=== PATIENT | female | born 1960 | race Caucasian/White ===

== ENCOUNTER 2016-08-25 05:20 | Inpatient (IN) | payer BC ==
[~2016-08-25] VITALS: Ht 167.6 cm; Wt 74.1 kg
[2016-08-25] VITALS (10 sets, daily range): BP systolic 114–148; BP diastolic 57–73; Ht 167.6 cm; Wt 74.1 kg
--- NOTE | 2016-08-25 07:24 | HP ---
PATIENT: EDEN CASTANON MEDICAL RECORD: [id number] ACCOUNT: [id number] LOCATION[place] [place] 58 ADMISSION DATE: 08/25/16 HISTORY AND PHYSICAL EXAMINATION HISTORY OF PRESENT ILLNESS: This patient is a 56-year-old white female with postmenopausal bleeding, pelvic and perineal pain, referred by Dr. Gilliland. She has undergone endometrial biopsy and Pap smears, which were normal. She had an ultrasound, which measured the uterus at 9.75 cm in length with myomas present. PAST MEDICAL HISTORY: Denies heart disease, diabetes or hypertension, has experienced postmenopausal bleeding and bothersome uterine prolapse. FAMILY HISTORY: Noncontributory. PREVIOUS SURGERIES: None. CURRENT MEDICATIONS: Include Nature-Thyroid, hydrochlorothiazide, progesterone, vitamin B12, biotin, omega-3 fish oil concentrate, probiotic, iodine, tramadol, cyclobenzaprine. HABITS: Smoker for 32 years. Ethanol, none. PHYSICAL EXAMINATION: VITAL SIGNS: Weight is 165, blood pressure 120/70. HEENT: Unremarkable. LUNGS: Clear. HEART: Regular rate and rhythm. ABDOMEN: Soft and nontender. PELVIC: Revealed a stage III pelvic prolapse, cystocele, rectocele and enlarged 10-week size uterus with myomas, third-degree prolapse. ADNEXA: No masses are appreciated. RECTAL: Confirms the above. EXTREMITIES: No cyanosis, clubbing or edema. NEUROLOGIC: Grossly intact. IMPRESSION: Uterine prolapse, cystocele, rectocele. Patient desires hysterectomy. PLAN: A laparoscopic evaluation and a vaginal hysterectomy with repairs and bilateral salpingo-oophorectomy. I have discussed the above planned procedure with the patient and answered all her questions. Discussed potential complications including anesthesia, infection, bleeding, injury to other organs, requiring second surgery for correction and she agrees. TRANSINT:[id number] Voice Confirmation ID: [id number] DOCUMENT ID: [id number] HISTORY AND PHYSICAL [id number] AMADEOEDEN CASTREJON KATHIE HANNA MD at 0724 CC: [id number] DICTATION DATE: 08/24/16 1315 ELECTROMECHANIC: 08/24/16 1442 [place] [address]
[2016-08-25 07:29] LABS: HCG SERUM NEGATIVE (NEGATIVE)
[2016-08-25 07:30] LABS: BASOPHILS 0.3 % (0.0-2.0); EOSINOPHILS 0.7 % (0-7); HEMATOCRIT 48.8 % (36.0-48.0); HEMOGLOBIN 16.8 g/dL (12-16); IMMATURE GRANULOCYTES 0.2 % (0-5); LYMPHOCYTES 31.4 % (15-50); MCH 29.6 pg (26.0-34.0); MCHC 34.4 g/dL (31.0-37.0); MCV 85.9 fL (80.0-100.0); MEAN PLATELET VOLUME 11.7 fL (7.4-10.4); MONOCYTES 9.2 % (2-11); NEUTROPHILS 58.2 % (40-80); PLATELET COUNT 204 10x3/uL (130-400); RBC 5.68 10x6/uL (4.00-5.40); RDW 13.3 % (11.5-14.5); WBC 6.1 10x3/uL (4.8-10.8)
[2016-08-25 07:32] LABS: CALCIUM 9.1 mg/dL (8.5-10.1); CARBON DIOXIDE 26.6 mmol/L (21.0-32.0)
[2016-08-25 07:48] LABS: ANION GAP 14.4 mmol/L (8-16)
[2016-08-25] MEDS ORDERED: HYDROCHLOROTHIA50 MG PO (07:54)
[2016-08-25] MEDS ORDERED: NATURE-THROID32.4 MG PO (07:54)
--- NOTE | 2016-08-25 12:13 | NUR ---
VASOPRESSION 20 UNITS IN 1000L NORMAL SALINE TO FIELD AVC CREAM TO VAGINA
--- NOTE | 2016-08-25 12:45 | NUR ---
PT IS BROUGHT BACK TO ROOM, POST EGD. STAFF STATES HE THINKS IT MAY BE GASTROPARESIS.
--- NOTE | 2016-08-25 13:15 | NUR ---
PT REQUESTED SOMETHING FOR PAIN. STATES HER PAIN IS ABOUT A 7-8.
--- NOTE | 2016-08-25 13:25 | NUR ---
X-RAY IS HERE TO DO A KUB OF HER ABDOMEN.
--- NOTE | 2016-08-25 14:57 | NUR ---
ANATHESIA NOTIFIED OF PT'S PAIN. ORDERS REC'D TO TRANSFERRED TO ROOM.
--- NOTE | 2016-08-25 15:37 | NUR ---
PT WAS RECEIVED FROM RECOVERY. PT IS AWAKE AND ALERT. LUNGS- CLEAR. HEART- RRR. ABD- SOFT, WITH TENDERNESS. WITH 3 LAP INCISIONS NOTED. ONE AT UMBILICUS COVERED WITH GAUZE AND 2 BELOW WITH BANDAIDS. CLEAN, DRY AND INTACT. ALVA CATH INTACT WITH GREEN URINE NOTED. 100 CC NOTED IN BAG. IV INTACT R HAND. PATENT WITH LR INFUSING AT 125 CC/HR. SCD'S INTACT. HER PAIN IS A 4/10. BED IS LOW, SIDE RAILS UP X 2 AND CALL LIGHT IN REACH.
--- NOTE | 2016-08-25 16:30 | NUR ---
PT IS RESTING. OFFERS NO COMPLAINTS. PAIN IS ABOUT A 3. 3 LAP ICISIONS CLEAN AND DRY. IV INTACT R FOREARM. PATENT. ALVA INTACT WITH 100 CC GREEN URINE NOTED. SCD'S INTACT.
--- NOTE | 2016-08-25 17:46 | NUR ---
PT IS RESTING . STATES PAIN IS A 4-5. LOOKED ONE MAR FOR PAIN MED. ONLY TORADOL ORDERED. CALLED DR REAL SHE ORDERED DEMEROL FLAME HARDENING MACHINE SETTER 10 MG Q 10 WITH 200 MG LOCKOUT. URINE OUTPUT 200 CC AND INPUT 243 IV FLUIDS. BED IS LOW. SIDE RAILS UP X 2 AND CALL LIGHT IN REACH. IV PATENT. SCD'S INTACT.
--- NOTE | 2016-08-25 18:25 | NUR ---
DEMEROL SPECIAL PROJECTS MANAGER INFUSING. IV PATENT R FOREARM. ALVA INTACT. DRESSINGS OVER LAP INCISIONS CLEAN AND DRY. SCD'S INTACT. BED IS LOW. SIDE RAILS UP X 2 AND CALL LIGHT IN REACH.
--- NOTE | 2016-08-25 19:38 | NUR ---
PM ROUNDS MADE, PT WATCHING TV, NEW BAG OF D5LR HUNG VIA PUMP INFUSING AT 125 ML/HR, SEE EMAR, INFORMED PT THAT I WILL BE BACK SHORTLY TO DO ASSESSMENT, PT VERBALIZES UNDERSTANDING, FRESH ICE PACK TO ABD AND H20 SERVED, PT DENIES FURTHER NEEDS
--- NOTE | 2016-08-25 20:48 | NUR ---
ADMITTING ASSESSMENT STARTED PER FLOW SHEET
--- NOTE | 2016-08-25 20:49 | NUR ---
ADM TORADOL SIVP AND PEPCID PO PER MD ORDERS, SEE EMAR
--- NOTE | 2016-08-25 20:59 | NUR ---
ADM TORADOL SIVP AND PEPCID PO PER MD ORDERS, SEE EMAR
--- NOTE | 2016-08-25 21:10 | NUR ---
ADMITTING ASSESSMENT COMPLETED, POC DISCUSSED WITH PT, PT VERBALIZES UNDERSTANDING, DENIES NEEDS AT THIS TIME
--- NOTE | 2016-08-25 22:15 | NUR ---
PT RESTING WITH EYES CLOSED, RESP QUIET, NO DISTRESS NOTED, LEFT UNDISTURBED AT THIS TIME
[2016-08-26] VITALS: BP 103/54
--- NOTE | 2016-08-26 | NUR ---
PT MACHINE TAPER LIGHT, VS OBTAINED, ALVA CATH EMPTIED, PT REQUESTED AND PROVIDED FRESH ICE PACK AND H20 TO DRINK, PT DENIES FURTHER NEEDS
--- NOTE | 2016-08-26 02:28 | NUR ---
PT AWAKE, ADM TORADOL SIVP PER MD ORDERS, SEE EMAR, PT REQUESTED AND SERVED CRANBERRY JUICE, PT DENIES FURTHER NEEDS
--- NOTE | 2016-08-26 03:17 | NUR ---
NEW BAG OF D5LR HUNG INFUSING VIA PUMP AT 125 ML/HR, SEE EMAR, PT DENIES NEEDS OR PAIN AT THIS TIME
[2016-08-26 04:00] VITALS: BP 112/62
--- NOTE | 2016-08-26 04:00 | NUR ---
PT AWAKE, VS OBTAINED, I&O'S COLLECTED, FRESH ICE PACK TO ABD, REQUESTED AND SERVED FRESH H20, DENIES FURTHER NEEDS OR PAIN AT THIS TIME
--- NOTE | 2016-08-26 05:30 | NUR ---
LAB IN ROOM FOR AM BLOOD DRAW, PT DENIES NEEDS AT THIS TIME
[2016-08-26 06:36] LABS: MCH 29.4 pg (26.0-34.0); MCHC 33.9 g/dL (31.0-37.0); MCV 86.9 fL (80.0-100.0); MEAN PLATELET VOLUME 12.1 fL (7.4-10.4); RDW 12.9 % (11.5-14.5)
[2016-08-26 06:38] LABS: HEMATOCRIT 37.8 % (36.0-48.0); HEMOGLOBIN 12.8 g/dL (12-16); RBC 4.35 10x6/uL (4.00-5.40); WBC 15.4 10x3/uL (4.8-10.8)
--- NOTE | 2016-08-26 07:00 | NUR ---
SHIFT REPORT TO DAY SHIFT
--- NOTE | 2016-08-26 07:42 | OP ---
PATIENT NAME: EDEN CASTANON MEDICAL RECORD: [id number] :58 LOCATION:[id number] ADMISSION DATE:08/25/16 SURGEON: SUJATHA REAL MD DATE OF OPERATION: 08/25/2016 PREOPERATIVE DIAGNOSIS: Symptomatic uterine prolapse with myomas, cystocele, rectocele, and vulvar condyloma. POSTOPERATIVE DIAGNOSIS: Symptomatic uterine prolapse with myomas, cystocele, rectocele, and vulvar condyloma. PROCEDURE: Laparoscopically-assisted vaginal hysterectomy with bilateral salpingo-oophorectomy, vaginal repair, anterior and posterior colporrhaphy, cautery of vulvar condyloma. SURGEON: Sujatha Real MD. ANESTHESIA: General. FINDINGS: A 10-12 weeks size myomatous uterus with third degree prolapse, a small cystocele and rectocele present, numerous condylomata over the vulva. ESTIMATED BLOOD LOSS: 250 cc. COMPLICATIONS OF PROCEDURE: None. OPERATIVE NOTE: The patient was taken to the OR and under adequate general anesthesia, prepped and draped in the usual manner for abdominal and vaginal procedures with legs in floating boot Joaquin stirrups. The anterior lip of the cervix was grasped with tenaculum. The uterus was noted to be presenting at the vaginal introitus. Intrauterine manipulator was then stabilized. Lopez catheter inserted. An elliptical incision was made at the umbilicus and extended through subcutaneous tissue and fascia to the peritoneum, which was then entered bluntly with fingertips. Laparoscopic trocar sleeve was then inserted followed by the laparoscope. A second and third puncture were made in the lower abdomen under direct visualization in order to allow manipulation of pelvic contents. Findings were as listed above. The infundibulopelvic ligament was isolated on the right and ligated using electrocautery and the Harmonic scalpel. Identical procedure carried out on the left. The integrity of the urinary tract was confirmed throughout the case with the use of methylene blue injected IV. The uterine vessels were then identified near the uterus and ligated using bipolar cautery and the Harmonic scalpel. A bladder flap was then developed anteriorly using the Harmonic scalpel and blunt dissection and at this time, the surgery was begun vaginally. Posterior cul-de-sac was entered using Jones scissors, anterior cul-de-sac using blunt and sharp dissection. The cardinal ligaments were ligated on the right and left using Jonathan clamps and #1 chromic suture. At this time, the specimen was removed. Specimen included cervix markedly elongated and uterus of 10+ week size with myomas present. Both tubes, both ovaries attached. These specimens were sent to pathology for further evaluation. The vaginal apex was closed using interrupted [id number] #1 chromic sutures. Anterior repair was begun with incision from the urethra to the vaginal apex. The mucosa undermined the right and left using blunt and sharp dissection. Repair work accomplished using interrupted 2-0 chromic sutures. Excess mucosa excised and reapproximated using a running interlocking 2-0 chromic suture. The posterior repair was accomplished by OPERATIVE REPORT [id number] EDEN CASTANON making an incision in the vaginal apex to the vaginal introitus. Undermining the mucosa to the right and left using blunt and sharp dissection. Excess mucosa was excised. Repair work accomplished using interrupted 0 chromic mattress sutures. Mucosa reapproximated using a running interlocking 2-0 chromic suture. At the end of procedure, there was no bleeding. A vaginal pack was placed after lubricating the pack with vaginal cream. Lopez catheter was reinserted revealing blue urine. There has been no evidence of spillage into the vaginal area or abdominal area. The abdomen was then reinflated. All pedicles were inspected. Irrigation was then performed and suctioned. There was no bleeding. All instruments were removed. Abdomen was deflated. The vaginal pack had been placed previously. Electrocautery was used to treat the condyloma at the vaginal introitus. The patient then went to the recovery area in good condition. TRANSINT:[id number] Voice Confirmation ID: [id number] DOCUMENT ID: [id number] SUJATHA REAL MD at 0742 CC: [id number] DICTATION DATE: 08/25/16 1426 ELECTRONIC TRAIN CONTROL TECHNICIAN: 08/25/16 2317 ADM IN [place] [id number] [place] [address]
--- NOTE | 2016-08-26 08:20 | NUR ---
PATIENT IS AWAKE AND ALERT, BED IN [place] FOWLERS. SHE IS SMILING AND WITHOUT COMPLAINTS. BAR STAFF IN USE. HER DRESSING IS C/D/I AT THE UMBILICUS. NO VAGINAL BLEEDING NOTED. BOWEL SOUNDS ACTIVE. DR. LAL IN TO ASSESS PATIENT. CARDIAC RRR, LUNG SOUNDS CLEAR WITH CRACKLES NOTED IN THE LEFT LOWER LOBE. LOW EDGAR NOTED. PATIENT STATES THAT THIS IS NORMAL FOR HER.
[2016-08-26 09:15] VITALS: BP 101/44
--- NOTE | 2016-08-26 09:23 | NUR ---
PATIENT'S MEDICATIONS GIVEN. SHE IS WITHOUT COMPLAINTS AND REPORTS ADVERSE REACTION TO MOBIC IN THE PAST. SHE STATES THAT IT MAKES HER VERY NERVOUS, TO THE POINT SHE CANNOT BE IN PUBLIC. SHE DENIES ANY REACTION TO THE TORADOL.
[2016-08-26 16:10] VITALS: BP 102/52
--- NOTE | 2016-08-26 16:36 | NUR ---
PATIENT UP AMBULATING IN THE ROOM, STATES THAT HER PAIN IS SIMPLE SORENESS. THE TORADOL DID HELP THE LITTLE PAIN THAT SHE DOES HAVE.
--- NOTE | 2016-08-26 17:48 | NUR ---
PATIENT RESTING IN HER BED, HOB UP HI FOWLERS. DENIES NEEDS, SUPPER TRAY AVAILABLE ON THE BEDSIDE TABLE.
--- NOTE | 2016-08-26 19:30 | NUR ---
PM ROUNDS MADE, PT IS RESTING WITH EYES CLOSED, RESP QUIET, NO DISTRESS NOTED, LEFT UNDISTURBED AT THIS TIME
[2016-08-26 20:00] VITALS: BP 119/48; BP 121/61
--- NOTE | 2016-08-26 20:00 | NUR ---
ASSESSMENT PER FLOW SHEET, VS OBTAINED, SALINE LOCK TO RIGHT FA INTACT WITH NO REDNESS OR EDEMA, UMB INC AND 2 LOWER LAP INC INTACT WITH NO DRAIANGE NOTED, PT REPORTS FLATUS, NO BM AND VOIDING BY SELF WITH NO DIFFICULTY, PT REPORTS SCANT VAG BLEEDING, STATES "IT'S NOTHING LIKE IT WAS EARLIER", PT REPORTS WANTING TO TAKE A SHOWER IN A LITTLE WHILE, SALINE LOCK COVERED, PT INST ON REMOVING COVERING AFTER TAKING A SHOWER, OR JUST USING CALL LIGHT FOR ANY ASSISTANCE, TOWELS, WASH CLOTHS AND GOWN PROVIDED, PT RATES INC PAIN 4/10 AT THIS TIME, BUT DENIES NEED FOR PAIN MED
--- NOTE | 2016-08-26 20:45 | NUR ---
PT STENCIL SPRAYER LIGHT, PT OUT OF SHOWER, COVERING OVER SALINE LOCK REMOVED, DIRTY LINENS REMOVED, PT DENIES FURTHER NEEDS, INFORMED PT THAT I WILL BE IN SHORTLY TO ADM MEDS
--- NOTE | 2016-08-26 21:20 | NUR ---
SALINE LOCK FLUSHED, ADM DILUTED TORADOL SIVP PER MD ORDERS, SEE EMAR, SALINE LOCK FLUSHED, ADM MEDS PO PER MD ORDERS, SEE EMAR, PT REQUESTED AND SERVED FRESH H20, PT DENIES FURTHER NEEDS
--- NOTE | 2016-08-26 22:40 | NUR ---
PT RESTING WITH EYES CLOSED, RESP QUIET, NO DISTRESS NOTED, LEFT UNDISTURBED AT THIS TIME
[2016-08-27 00:40] VITALS: BP 116/61
--- NOTE | 2016-08-27 00:40 | NUR ---
PT RESTING WITH EYES CLOSED, AROUSES TO SOFT VERBAL STIMULATION, VS OBTAINED, DENIES NEEDS OR PAIN AT THIS TIME
--- NOTE | 2016-08-27 02:40 | NUR ---
PT RESTING WITH EYES CLOSED, RESP QUIET, NO DISTRESS NOTED, LEFT UNDISTURBED AT THIS TIME
[2016-08-27 03:28] VITALS: BP 121/66
--- NOTE | 2016-08-27 03:28 | NUR ---
PT AWAKE, SALINE LOCK FLUSHED, ADM DILUTED TORADOL SIVP PER MD ORDERS, SEE EMAR, SALINE LOCK FLUSHED, VS OBTAINED, PT DENIES NEEDS AT THIS TIME
--- NOTE | 2016-08-27 05:00 | NUR ---
PT RESTING WITH EYES CLOSED, RESP QUIET, NO DISTRESS NOTED, LEFT UNDISTURBED AT THIS TIME
[2016-08-27 09:00] VITALS: BP 141/63
[2016-08-27] MEDS ORDERED: PERCOCET 5-3251 TAB PO (10:23)
[2016-08-27] MEDS ORDERED: IBUPROFEN600 MG PO (10:23)
--- NOTE | 2016-08-27 11:15 | NUR ---
DISCUSSED PATIENT'S DISCHARGE INSTRUCTIONS. INCLUDED INCISION CARE, MEDICATIONS AND FOLLOW UP APPT MADE. PRESCRIPTIONS GIVEN. FATHER HERE TO DRIVE HER HOME. O
== END 2016-08-27 11:20 | disposition home or self-care (01) | DRG 743 ==
LOC: D.SDCHOLD 05:20 → D.WS 05:20 → D.SDCHOLD 09:00 → D.WS 14:09
PROVIDERS: Anesthesiology; ADMIT Obstetrics & Gynecology
PROC: 0UT9FZZ Resection of Uterus, Via Natural or Artificial Opening With Percutaneous Endoscopic Assistance (ICD-10-PCS; principal; 2016-08-25 10:00)
PROC: 0UT2FZZ Resection of Bilateral Ovaries, Via Natural or Artificial Opening With Percutaneous Endoscopic Assistance (ICD-10-PCS; principal; 2016-08-25 10:00)
PROC: 0JQC0ZZ Repair Pelvic Region Subcutaneous Tissue and Fascia, Open Approach (ICD-10-PCS; principal; 2016-08-25 10:00)
PROC: 0UT7FZZ Resection of Bilateral Fallopian Tubes, Via Natural or Artificial Opening With Percutaneous Endoscopic Assistance (ICD-10-PCS; principal; 2016-08-25 10:00)
DX: N95.0 Postmenopausal bleeding (principal); E11.9 Type 2 diabetes mellitus without complications; I10 Essential (primary) hypertension; N81.4 Uterovaginal prolapse, unspecified